=== PATIENT | male | born 1945 | race Caucasian/White ===

== ENCOUNTER 2016-09-17 08:14 | Emergency (ER) | payer OTHER ==
[2016-09-17] MEDS ORDERED: Adacel (T-DAP) 0.5 ML VIAL ONE (09:03)
== END 2016-09-17 09:29 | disposition home or self-care (01) ==
LOC: BURERS 08:14
DX: S80.12XA Contusion of left lower leg, initial encounter (principal); I10 Essential (primary) hypertension; W01.190A Fall on same level from slipping, tripping and stumbling with subsequent striking against furniture, initial encounter; Y92.22 Religious institution as the place of occurrence of the external cause
CPT/HCPCS: 90471; 90715

== ENCOUNTER 2016-10-30 09:44 | Outpatient (CLI) | payer MEDICARE, OTHER ==
--- NOTE | 2016-10-30 17:09 | ULT ---
NONVASCULAR ULTRASOUND OF THE LEFT LOWER EXTREMITY 10/30/16 Ultrasonography of the patient's left calf was done for an unresolved soft tissue swelling. The camila ent is several weeks post trauma here. There is a large discrete hypoechoic "mass" that would be consistent with a complex hematoma. No blo od flow was seen within this structure. It is approximately 8 cm in length. It seems more complex th an having a large amount of fluid, thus, I do not believe it could be easily drained. Obviously, it would be reasonable to followup to complete resolution. IMPRESSION: Findings most consistent with an 8 cm calf hematoma but without substantial fluid component that cou ld be easily drained. POS: HOME
== END 2016-10-30 09:45 | disposition home or self-care (01) ==
LOC: BURULT 09:44
PROVIDERS: ATTEND Family Medicine
DX: M79.89 Other specified soft tissue disorders (principal)
CPT/HCPCS: 76882